=== PATIENT | male | born 1960 | race Caucasian/White ===

== ENCOUNTER 2018-12-16 05:35 | Observation (INO) ==
[2018-12-16] MEDS ORDERED: *HR* HYDROmorphone 2 MG/ML SYRINGE IVP STA (06:14)
[2018-12-16] MEDS ORDERED: 0.9 % Sodium Chloride 1,000 ML IVC ONE (06:14)
[2018-12-16] MEDS ORDERED: Famotidine 20 MG/2 ML VIAL IVP ONE (06:14)
[2018-12-16] MEDS ORDERED: Ondansetron 4 MG/2 ML VIAL IVP ONE ×2 (06:14→13:37)
[2018-12-16 07:06] LABS: Basophils # 0.1 K/mcL (0.0-0.2); Basophils % 0.4 %; Eosinophils # 0.2 K/mcL (0.0-0.6); Eosinophils % 1.6 %; Hematocrit 43.4 % (37.5-50.1); Hemoglobin 13.7 g/dL (12.9-16.9); Immature Granulocytes % 0.5 % (0-4); Lymphocytes # 1.7 K/mcL (0.6-4.6); Lymphocytes % 13.4 %; Mean Corpuscular HGB Conc 31.6 g/dL (31.6-35.5); Mean Corpuscular Hemoglobin 27.5 pg (28.0-33.3); Mean Corpuscular Volume 87.1 fL (83.0-100.0); Mean Platelet Volume 11.1 fL (9.4-12.4); Neutrophils # 9.3 K/mcL (1.6-8.9); Platelet Count 342 K/mcL (140-400); Red Blood Count 4.98 M/mcL (4.19-5.50); Red Cell Distribution Width 13.3 % (11.5-14.5); Segmented Neutrophils % 76.1 %; White Blood Count 12.3 K/mcL (4.3-11.1)
[2018-12-16 07:29] LABS: Alanine Aminotransferase 54 Units/L (7-52); Albumin/Globulin Ratio 1.3 (1.1-2.2); Alkaline Phosphatase 54 Units/L (34-104); Aspartate Amino Transferase 39 Units/L (13-39); BUN/Creatinine Ratio 20 (6-26); Bilirubin,Direct 0.1 mg/dL (0.0-0.2); Bilirubin,Indirect 0.4 mg/dL (0.0-1.2); Bilirubin,Total 0.5 mg/dL (0.3-1.0); Blood Urea Nitrogen 19 mg/dL (6-20); Calcium 8.9 mg/dL (8.6-10.3); Carbon Dioxide 28 mEq/L (23-29); Chloride 101 mEq/L (98-107); Glucose 131 mg/dL (70-105); Lipase 12 Units/L (11-82); Osmolality,Calculated 286 (280-300); Potassium 3.6 mEq/L (3.5-5.1); Sodium 136 mEq/L (136-145); eGFR For African Americans > 60 (> 60); eGFR For Non-African Americans > 60 (> 60)
[2018-12-16] MEDS ORDERED: *HR* HYDROmorphone (PF) 1 MG/ML SYRINGE IVP ONE (08:17)
[2018-12-16] MEDS ORDERED: Ipratropium/Albuterol Neb 3 ML IH ONE (10:11)
[2018-12-16] MEDS ORDERED: *HR* Metoprolol 5 MG/5 ML VIAL IVP PRN ×2 (10:11→16:32)
[2018-12-16] MEDS ORDERED: Ondansetron 4 MG/2 ML VIAL IVP PRN ×2 (10:11→16:32)
[2018-12-16] MEDS ORDERED: *HR* Promethazine 25 MG/ML VIAL IVP PRN ×2 (10:11→13:37)
[2018-12-16] MEDS ORDERED: Pantoprazole 40 MG VIAL IVP SCH (10:12)
[2018-12-16] MEDS ORDERED: Piperacillin/Tazobactam 3.375 GM in 0.9 % Sodium Chloride Mini Bag 100 ML IVPB SCH (10:14)
[2018-12-16 10:46] LABS: INR 1.1
[2018-12-16] MEDS ORDERED: Ipratropium/Albuterol Neb 3 ML ONE (11:05)
[2018-12-16] MEDS ORDERED: Lidocaine HCL 4 ML Topical Solution (Laryng-O-Jet Kit Sterile Pak) TP ONE (13:15)
[2018-12-16] MEDS ORDERED: Ondansetron 4 MG/2 ML VIAL ONE (13:17)
[2018-12-16] MEDS ORDERED: *HR* Rocuronium Bromide 50 MG/5 ML VIAL ONE ×2 (13:17→14:53)
[2018-12-16] MEDS ORDERED: Lidocaine -MPF 2% 2 ML VIAL ONE (13:17)
[2018-12-16] MEDS ORDERED: *HR* Succinylcholine 200 MG/10 ML VIAL IVP ONE (13:17)
[2018-12-16] MEDS ORDERED: Dexamethasone 4 MG/ML VIAL ONE (13:17)
[2018-12-16] MEDS ORDERED: *HR* FentaNYL (PF) 100 MCG/2 ML VIAL ONE ×3 (13:18→15:50)
[2018-12-16] MEDS ORDERED: *HR* Midazolam HCl 2 MG/2 ML VIAL ONE (13:18)
[2018-12-16] MEDS ORDERED: *HR* Propofol 200 MG/20 ML VIAL IVP ONE (13:18)
[2018-12-16] MEDS ORDERED: Isovue-300 50ML VIAL ONE (13:23)
[2018-12-16] MEDS ORDERED: CefOXitin 1,000 MG VIAL ONE (13:23)
[2018-12-16] MEDS ORDERED: *HR* HYDROmorphone (PF) 1 MG/ML SYRINGE IVP PRN (13:37)
[2018-12-16] MEDS ORDERED: Famotidine 20 MG/2 ML VIAL ONE (13:39)
[2018-12-16] MEDS ORDERED: Acetaminophen IV 1,000 MG/100 ML INFUS..BTL ONE (13:39)
[2018-12-16] MEDS ORDERED: *HR* Labetalol 20 MG/4 ML SYRINGE IVP ONE (14:20)
[2018-12-16] MEDS ORDERED: EPHEDrine 50 MG/ML VIAL ONE (14:39)
[2018-12-16] MEDS ORDERED: *HR* OxyCODONE/APAP 5/325 TABLET PO PRN (15:42)
[2018-12-16] MEDS ORDERED: 0.9 % Sodium Chloride 1,000 ML IVC SCH (15:45)
[2018-12-16] MEDS: Piperacillin/Tazobactam 3.375 GM in 0.9 % Sodium Chloride Mini Bag 100 ML IVPB SCH (18:03)
[2018-12-16] MEDS: 0.9 % Sodium Chloride 1,000 ML IVC SCH (18:44)
[2018-12-17] MEDS: Piperacillin/Tazobactam 3.375 GM in 0.9 % Sodium Chloride Mini Bag 100 ML IVPB SCH ×2 (02:39→21:36)
[2018-12-17 04:32] LABS: Basophils % 0.2 %; Eosinophils % 0.1 %; Hematocrit 40.2 % (37.5-50.1); Hemoglobin 12.6 g/dL (12.9-16.9); Immature Granulocytes % 0.4 % (0-4); Lymphocytes # 1.4 K/mcL (0.6-4.6); Lymphocytes % 10.7 %; Mean Corpuscular HGB Conc 31.3 g/dL (31.6-35.5); Mean Corpuscular Hemoglobin 28.1 pg (28.0-33.3); Mean Corpuscular Volume 89.7 fL (83.0-100.0); Mean Platelet Volume 10.2 fL (9.4-12.4); Monocytes % 8.2 %; Neutrophils # 10.2 K/mcL (1.6-8.9); Platelet Count 313 K/mcL (140-400); Red Blood Count 4.48 M/mcL (4.19-5.50); Red Cell Distribution Width 13.2 % (11.5-14.5); Segmented Neutrophils % 80.4 %; White Blood Count 12.7 K/mcL (4.3-11.1)
[2018-12-17 04:56] LABS: BUN/Creatinine Ratio 14 (6-26); Blood Urea Nitrogen 13 mg/dL (6-20); Calcium 8.3 mg/dL (8.6-10.3); Carbon Dioxide 26 mEq/L (23-29); Chloride 99 mEq/L (98-107); Glucose 139 mg/dL (70-105); Osmolality,Calculated 282 (280-300); Potassium 3.8 mEq/L (3.5-5.1); Sodium 135 mEq/L (136-145); eGFR For African Americans > 60 (> 60); eGFR For Non-African Americans > 60 (> 60)
[2018-12-17] MEDS: *HR* OxyCODONE/APAP 5/325 TABLET PO PRN ×3 (08:21→23:24)
[2018-12-17] MEDS: Pantoprazole 40 MG VIAL IVP SCH (08:21)
[2018-12-17] MEDS: 0.9 % Sodium Chloride 1,000 ML IVC SCH (08:25)
[2018-12-17] MEDS ORDERED: Piperacillin/Tazobactam 3.375 GM in 0.9 % Sodium Chloride Mini Bag 100 ML IVPB SCH (13:50)
[2018-12-18] MEDS ORDERED: Ibuprofen 600 MG TABLET PO ONE (00:47)
[2018-12-18] MEDS: 0.9 % Sodium Chloride 1,000 ML IVC SCH (01:33)
[2018-12-18] MEDS: Piperacillin/Tazobactam 3.375 GM in 0.9 % Sodium Chloride Mini Bag 100 ML IVPB SCH (05:40)
[2018-12-18 06:39] VITALS: BP 130/87
[2018-12-18] MEDS: *HR* OxyCODONE/APAP 5/325 TABLET PO PRN (08:33)
[2018-12-18] MEDS: Pantoprazole 40 MG VIAL IVP SCH (08:41)
== END 2018-12-18 11:05 | disposition home or self-care (01) ==
LOC: EMEROOARM 05:35 → 3ANU 05:35
PROVIDERS: ADMIT Surgery; ATTEND Surgery